=== PATIENT | female | born 1960 | race Caucasian/White ===

== ENCOUNTER 2019-07-02 16:52 | Inpatient (IN) | payer OTHER ==
[~2019-07-02] VITALS: Ht 152.4 cm; Wt 85.7 kg
--- NOTE | 2019-07-02 16:59 | NUR ---
SE RECIBE AL PACIENTE ALERTA Y ORIENTADO EN PRESTON PINA ESFERAS. PACIENTE REFIERE QUE VIENE CON REFERIDO DE LA OLIVIA. KODI HESTER. PACIENTE REFIERE QUE ESTA SUFRIENDO SOTO ABDOMINALES DESDE HACE DELISA SEMANA.
--- NOTE | 2019-07-02 18:02 | NUR ---
SRA. VANDANA GARCIA, ORIENTA AL PACIENTE SOBRE CT Y MUESTRAS DE [place]ANCIS[place] A SER COLECTADAS LEOBARDO ORDEN MEDICA. PACIENTE REFIERE ENTENDER. SRA. VANDANA GARCIA, PROCEEDE A COLECTAR LAS MUSTRAS DE [place]ANC[place] UTILIZANDO MEDIDAS ASEPTICAS Y LAS ENVIA AL LABORATORIO. SE CANALIZA AL PACIENTE Y SE VERIFICA LA PATENTICIDAD DE LA MISMA. LA MISMA ESTA PATENTE, KAN DE EDEMA Y ERITEMA.
[2019-07-08] MEDS ORDERED: QUESTRAN POWDE378 GM PO (08:06)
[2019-07-08] MEDS ORDERED: PERCOCET 5-3251 EACH PO (08:06)
[2019-07-08] MEDS ORDERED: INTESTINEX680 M1 PO (08:07)
== END 2019-07-08 10:10 | disposition home or self-care (01) | DRG 329 ==
LOC: ER 16:52 → SEC-K 20:04 → SURG 20:04 → EDBD 20:04 → SURG 20:38 → SURH 07-05 14:23
PROVIDERS: ADMIT Surgery
PROC: BW21ZZZ Computerized Tomography (CT Scan) of Abdomen and Pelvis (ICD-10-PCS; 2019-07-02)
PROC: 07TB4ZZ Resection of Mesenteric Lymphatic, Percutaneous Endoscopic Approach (ICD-10-PCS; 2019-07-03)
PROC: 0DTF4ZZ Resection of Right Large Intestine, Percutaneous Endoscopic Approach (ICD-10-PCS; principal; 2019-07-03 12:00)
DX: C18.2 Malignant neoplasm of ascending colon (principal); K63.1 Perforation of intestine (nontraumatic); C18.3 Malignant neoplasm of hepatic flexure; K56.699 Other intestinal obstruction unspecified as to partial versus complete obstruction; D12.2 Benign neoplasm of ascending colon; R59.0 Localized enlarged lymph nodes

== ENCOUNTER 2019-08-01 13:11 | Outpatient (CLI) | payer OTHER ==
[~2019-08-01 13:11] MED LIST: INTESTINEX680 M1 PO; PERCOCET 5-3251 EACH PO; QUESTRAN POWDE378 GM PO
== END 2019-08-01 13:20 | disposition home or self-care (01) ==
LOC: LAB 13:11
DX: C18.3 Malignant neoplasm of hepatic flexure (principal); R59.0 Localized enlarged lymph nodes

== ENCOUNTER 2019-08-06 06:43 | Day surgery (SDC) | payer OTHER ==
[2019-08-06] MEDS ORDERED: ULTRACET PO (12:33)
== END 2019-08-06 15:00 | disposition home or self-care (01) ==
LOC: CIR.AMB 06:43 → ADM 09:00 → CIR.AMB 11:00
DX: C18.3 Malignant neoplasm of hepatic flexure (principal)
CPT/HCPCS: 36561; C1751

== ENCOUNTER 2019-08-15 09:01 | Outpatient (CLI) | payer OTHER ==
[~2019-08-15 09:01] MED LIST changes: +ULTRACET PO
== END 2019-08-15 09:15 | disposition home or self-care (01) ==
LOC: NUCLEAR 09:01
DX: C18.3 Malignant neoplasm of hepatic flexure (principal); R59.0 Localized enlarged lymph nodes
CPT/HCPCS: 78816; A9552

== ENCOUNTER 2019-09-20 07:50 | Outpatient (CLI) | payer OTHER | END 2019-09-20 07:59 | disposition home or self-care (01) | LOC: LAB 07:50 | DX: Z51.11 Encounter for antineoplastic chemotherapy (principal); C18.2 Malignant neoplasm of ascending colon ==

== ENCOUNTER 2019-10-04 07:55 | Outpatient (CLI) | payer OTHER | END 2019-10-04 15:00 | disposition home or self-care (01) | LOC: LAB 07:55 | DX: C18.2 Malignant neoplasm of ascending colon (principal); Z51.11 Encounter for antineoplastic chemotherapy ==

== ENCOUNTER 2019-10-18 07:35 | Outpatient (CLI) | payer OTHER | END 2019-10-18 07:48 | disposition home or self-care (01) | LOC: LAB 07:35 | DX: Z51.11 Encounter for antineoplastic chemotherapy (principal); C18.2 Malignant neoplasm of ascending colon ==

== ENCOUNTER 2019-11-01 07:49 | Outpatient (CLI) | payer OTHER | END 2019-11-01 08:00 | disposition home or self-care (01) | LOC: LAB 07:49 | DX: Z51.11 Encounter for antineoplastic chemotherapy (principal); C18.2 Malignant neoplasm of ascending colon ==

== ENCOUNTER 2019-11-15 07:48 | Outpatient (CLI) | payer OTHER | END 2019-11-15 08:11 | disposition home or self-care (01) | LOC: LAB 07:48 | DX: C18.2 Malignant neoplasm of ascending colon (principal) ==

== ENCOUNTER 2019-11-29 07:49 | Outpatient (CLI) | payer OTHER | END 2019-11-29 07:59 | disposition home or self-care (01) | LOC: LAB 07:49 | DX: C18.2 Malignant neoplasm of ascending colon (principal) ==

== ENCOUNTER 2019-12-13 08:18 | Outpatient (CLI) | payer OTHER | END 2019-12-13 08:25 | disposition home or self-care (01) | LOC: LAB 08:18 | DX: C18.2 Malignant neoplasm of ascending colon (principal) ==

== ENCOUNTER 2019-12-27 08:18 | Outpatient (CLI) | payer OTHER | END 2019-12-27 09:10 | disposition home or self-care (01) | LOC: LAB 08:18 | DX: C18.2 Malignant neoplasm of ascending colon (principal) ==

== ENCOUNTER 2020-01-10 08:04 | Outpatient (CLI) | payer OTHER | END 2020-01-10 08:10 | disposition home or self-care (01) | LOC: LAB 08:04 | DX: C18.2 Malignant neoplasm of ascending colon (principal) ==

== ENCOUNTER → 2020-01-24 08:15 | Outpatient (CLI) | payer OTHER | END | disposition home or self-care (01) | LOC: LAB 08:15 | PROVIDERS: ATTEND Internal Medicine | DX: C18.2 Malignant neoplasm of ascending colon (principal) ==

== ENCOUNTER → 2020-02-07 08:04 | Outpatient (CLI) | payer OTHER | END | disposition home or self-care (01) | LOC: LAB 08:04 | PROVIDERS: ATTEND Internal Medicine | DX: C18.2 Malignant neoplasm of ascending colon (principal) ==

== ENCOUNTER 2020-03-27 09:45 | Outpatient (CLI) | payer OTHER | END 2020-03-27 15:49 | disposition home or self-care (01) | LOC: LAB 09:45 | PROVIDERS: ATTEND Internal Medicine | DX: C18.2 Malignant neoplasm of ascending colon (principal) ==

== ENCOUNTER 2020-04-12 06:55 | Outpatient (CLI) | payer OTHER | END 2020-04-12 07:07 | disposition home or self-care (01) | LOC: LAB 06:55 | PROVIDERS: ATTEND Internal Medicine | DX: C18.2 Malignant neoplasm of ascending colon (principal); C78.7 Secondary malignant neoplasm of liver and intrahepatic bile duct ==

== ENCOUNTER 2020-04-19 06:52 | Outpatient (CLI) | payer OTHER | END 2020-04-19 06:58 | disposition home or self-care (01) | LOC: LAB 06:52 | DX: C18.2 Malignant neoplasm of ascending colon (principal); C78.7 Secondary malignant neoplasm of liver and intrahepatic bile duct ==

== ENCOUNTER → 2020-04-24 07:24 | Outpatient (CLI) | payer OTHER | END | disposition home or self-care (01) | LOC: LAB 07:24 | PROVIDERS: ATTEND Internal Medicine | DX: C18.2 Malignant neoplasm of ascending colon (principal); C78.7 Secondary malignant neoplasm of liver and intrahepatic bile duct ==

== ENCOUNTER 2020-05-03 15:10 | Inpatient (IN) | payer OTHER ==
[~2020-05-03] VITALS: Ht 149.9 cm; Wt 69.4 kg
== END 2020-05-11 10:41 | disposition home or self-care (01) | DRG 389 ==
LOC: ER 15:10 → SEC-K 05-04 07:59 → SURH 05-04 19:57 → SEC-K 05-04 20:24 → SURH 05-05 20:28
PROVIDERS: ADMIT Surgery; ATTEND Surgery
PROC: 0DBN8ZX Excision of Sigmoid Colon, Via Natural or Artificial Opening Endoscopic, Diagnostic (ICD-10-PCS; principal; 2020-05-07)
DX: K56.690 Other partial intestinal obstruction (principal); C18.2 Malignant neoplasm of ascending colon; C78.7 Secondary malignant neoplasm of liver and intrahepatic bile duct; C78.02 Secondary malignant neoplasm of left lung; C78.01 Secondary malignant neoplasm of right lung; D70.1 Agranulocytosis secondary to cancer chemotherapy; D64.9 Anemia, unspecified; Z20.828 Contact with and (suspected) exposure to other viral communicable diseases; R59.0 Localized enlarged lymph nodes; K59.09 Other constipation; T38.6X5A Adverse effect of antigonadotrophins, antiestrogens, antiandrogens, not elsewhere classified, initial encounter

== ENCOUNTER 2020-05-27 16:43 | Inpatient (IN) | payer OTHER ==
[~2020-05-27] VITALS: Ht 152.4 cm; Wt 68.0 kg
[2020-05-27] MEDS ORDERED: TYLENOL325 MG (16:55)
[2020-05-27] MEDS ORDERED: GAS-X125 M1 (16:55)
[2020-05-27] MEDS ORDERED: PEPCID AC20 MG (16:55)
--- NOTE | 2020-05-27 16:55 | NUR ---
SE RECIBE PTE ALERTA Y ORIENTADA X3,REFIERE TENER DOLOR ABDOMINAL ,DESDE LA MARUGADA DE HOY,PTE REFIERE QUE EL DOLOR ES EN EL LADO DERECHO ES PTE DE CANCER EN EL HIGADO.
--- NOTE | 2020-05-27 17:30 | NUR ---
PACIENTE ALERTA Y ORIENTADA X3. MANEJADA POR MIS. SANDS QUIEN ORIENTA A PACIENTE SOBRE PROCEDIMIENTO Y TRATAMIENTO A REALIZAR Y REFIERE ENTENDER. ADMINISTRA MEDICAMENTOS LEOBARDO ORDEN MEDICA. REALIZA MUESTRAS DE LABORATORIO BAJO MEDIDAS ASEPTICAS. CANALIZACION PATENTE Y KAN DE EDEMA Y ERITEMA. PENDIENTE SONOGRAMA ABDOMINAL. SE MANTIENE BAJO OBSERVACION POR CAMBIOS SIGNIFICATIVOS.
--- NOTE | 2020-05-27 22:29 | NUR ---
SE EXTRAEN MUESTRAS BAJO MEDIDAS ASEPTICAS Y SE REALIZA EKG LEOBARDO ORDEN MEDICA.
--- NOTE | 2020-05-28 07:35 | NUR ---
SE RECIBE PTE LA CUAL SE ENCUENTRA EN MARYJO CON BARANDAS ELEVADAS, ID BAND PTE PRESENTA AREA DE VENOPUNCION PATENTE Y KAN DE EDEMA CON IV FLUID BAJANDO 0.9NSS AT 150. PTE SE ENCUENTRA CONSULTADA CON DR. KODI HESTER.
[2020-06-02] MEDS ORDERED: PROTONIX40 MG PO (11:30)
[2020-06-02] MEDS ORDERED: ULTRAM50 MG PO (11:31)
[2020-06-02] MEDS ORDERED: LEVSIN/SL0.125 MG SL (11:31)
== END 2020-06-02 13:53 | disposition home or self-care (01) | DRG 445 ==
LOC: ER 16:43 → SEC-K 05-28 07:48 → SURG 05-28 07:48
PROVIDERS: ADMIT Surgery; ATTEND Surgery
PROC: BW40ZZZ Ultrasonography of Abdomen (ICD-10-PCS; principal; 2020-05-28)
DX: K81.0 Acute cholecystitis (principal); C18.2 Malignant neoplasm of ascending colon; C78.7 Secondary malignant neoplasm of liver and intrahepatic bile duct; C78.6 Secondary malignant neoplasm of retroperitoneum and peritoneum; K29.70 Gastritis, unspecified, without bleeding; D64.9 Anemia, unspecified; Z20.828 Contact with and (suspected) exposure to other viral communicable diseases

== ENCOUNTER 2020-06-25 10:20 | Emergency (ER) | payer OTHER ==
[~2020-06-25] VITALS: Ht 149.9 cm; Wt 58.1 kg
[~2020-06-25 10:20] MED LIST changes: +GAS-X125 M1; +LEVSIN/SL0.125 MG SL; +PEPCID AC20 MG; +PROTONIX40 MG PO; +TYLENOL325 MG; +ULTRAM50 MG PO
[2020-06-25] MEDS ORDERED: PERCOCET 5-3251 EACH PO (18:03)
[2020-06-25] MEDS ORDERED: DURAGESIC1 EAC1 TOP (18:03)
[2020-06-25] MEDS ORDERED: ONDANSETRON ODT4 MG SL (18:03)
[2020-06-25] MEDS ORDERED: PEPCID AC20 MG PO (18:03)
== END 2020-06-25 19:19 | disposition home or self-care (01) ==
LOC: ER 10:20
DX: R10.11 Right upper quadrant pain (principal); C18.2 Malignant neoplasm of ascending colon; C78.7 Secondary malignant neoplasm of liver and intrahepatic bile duct

== ENCOUNTER 2020-06-30 11:55 | Inpatient (IN) | payer OTHER ==
[~2020-06-30] VITALS: Ht 152.4 cm; Wt 56.7 kg
[~2020-06-30 11:55] MED LIST changes: +DURAGESIC1 EAC1 TOP; +ONDANSETRON ODT4 MG SL; +PEPCID AC20 MG PO
== END 2020-07-11 15:29 | disposition expired | DRG 641 ==
LOC: ER 11:55 → MEDJ 19:47 → SEC-K 19:47 → SURG 19:47 → MEDJ 23:00 → SURG 07-01 00:46 → MEDJ 07-01 20:14
PROVIDERS: ADMIT Internal Medicine; ATTEND Internal Medicine
PROC: 4A033R1 Measurement of Arterial Saturation, Peripheral, Percutaneous Approach (ICD-10-PCS; principal; 2020-06-30)
PROC: 8E0ZXY6 Isolation (ICD-10-PCS; 2020-06-30)
PROC: 02HV33Z Insertion of Infusion Device into Superior Vena Cava, Percutaneous Approach (ICD-10-PCS; 2020-06-30)
PROC: 3E0F7SF Introduction of Other Gas into Respiratory Tract, Via Natural or Artificial Opening (ICD-10-PCS; 2020-07-09)
DX: E86.0 Dehydration (principal); C78.7 Secondary malignant neoplasm of liver and intrahepatic bile duct; C78.02 Secondary malignant neoplasm of left lung; C78.01 Secondary malignant neoplasm of right lung; N13.39 Other hydronephrosis; A04.72 Enterocolitis due to Clostridium difficile, not specified as recurrent; R18.8 Other ascites; C78.6 Secondary malignant neoplasm of retroperitoneum and peritoneum; C18.2 Malignant neoplasm of ascending colon; E87.1 Hypo-osmolality and hyponatremia; Z20.828 Contact with and (suspected) exposure to other viral communicable diseases; E87.6 Hypokalemia; D63.0 Anemia in neoplastic disease; T45.1X5A Adverse effect of antineoplastic and immunosuppressive drugs, initial encounter; D70.1 Agranulocytosis secondary to cancer chemotherapy; E87.2 Acidosis; Z66 Do not resuscitate